=== PATIENT | male | born 1995 | race Caucasian/White ===

== ENCOUNTER 2023-08-15 01:37 | Emergency (ER) | payer OTHER ==
[~2023-08-15] VITALS: Ht 182.9 cm; Wt 68.0 kg
[2023-08-15 02:26] VITALS: BP 124/66; PULSE 89; RESP 18; TEMP 98.3
== END 2023-08-15 02:44 | disposition home or self-care (01) ==
LOC: EMS 01:37
DX: S01.21XA Laceration without foreign body of nose, initial encounter (principal); F41.9 Anxiety disorder, unspecified; F32.A Depression, unspecified; F12.90 Cannabis use, unspecified, uncomplicated; Z98.890 Other specified postprocedural states; Z88.0 Allergy status to penicillin; W26.8XXA Contact with other sharp object(s), not elsewhere classified, initial encounter; Y93.89 Activity, other specified; Y92.89 Other specified places as the place of occurrence of the external cause; Y99.8 Other external cause status
CPT/HCPCS: 12011; 99282; Z7502